=== PATIENT | female | born 1955 ===

== ENCOUNTER 2022-05-10 18:15 | Outpatient (REF) | payer MEDICARE, BC, SELFPAY ==
[2022-05-10 14:55] LABS: HCT 44.8 % (36.0-46.0); HGB 14.9 g/dL (11.2-15.7); MCH 29.4 pg (27.0-33.0); MCHC 33.3 % (32.0-36.0); MCV 88 fL (80-95); MPV 10.1 fL (8.0-11.0); Platelet Count 201 10^3/uL (130-400); RBC 5.07 10^6/uL (3.93-5.22); RDW 12.8 % (11.7-14.6); RDW-SD 41.8 fL; WBC 5.27 10^3/uL (4.4-10.8)
[2022-05-10 15:17] LABS: Anion Gap 7.3 mmol/L (3-11); BUN 17 mg/dL (7-18); CO2 27.7 mmol/L (21.0-32.0); CREATININE 0.8 mg/dL (0.55-1.02); Calcium 9.1 mg/dL (8.5-10.1); Calculated LDL 168 mg/dL (<100); Chloride 104 mmol/L (98-107); Cholesterol 256 mg/dL (<200); Estimated GFR 81.21 (mL/min/1.73m2); Glucose 104 mg/dL (74-106); HDL Cholesterol 73 mg/dL (40-60); Potassium 4.2 mmol/L (3.5-5.1); Sodium 139 mmol/L (136-145); Triglyceride 77 mg/dL (<150)
[2022-05-10 16:13] LABS: Hemoglobin A1C 5.5 % (<5.7)
== END 2022-05-10 18:16 | disposition home or self-care (01) ==
LOC: NCHCN 18:15
PROVIDERS: PCP Nurse Practitioner Family; Visit Provider Family Medicine
DX: I10 Essential (primary) hypertension (principal); Z13.89 Encounter for screening for other disorder
CPT/HCPCS: 80048; 80061; 85027; 83036

== ENCOUNTER 2023-04-24 15:02 | Outpatient (REF) | payer MEDICARE, BC, SELFPAY ==
[2023-04-24 21:36] LABS: BUN 17 mg/dL (7-18); CREATININE 0.9 mg/dL (0.55-1.02); Calcium 9.7 mg/dL (8.5-10.1); Chloride 105 mmol/L (98-107); Estimated GFR 70.07 (mL/min/1.73m2); Glucose 106 mg/dL (74-106); Potassium 4.1 mmol/L (3.5-5.1); Sodium 140 mmol/L (136-145)
== END 2023-04-24 15:03 | disposition home or self-care (01) ==
LOC: NCHCN 15:02
PROVIDERS: PCP Nurse Practitioner Family; Visit Provider Family Medicine
DX: I10 Essential (primary) hypertension (principal)
CPT/HCPCS: 80048

== ENCOUNTER 2024-05-08 15:08 | Outpatient (REF) | payer MEDICARE, BC, SELFPAY ==
--- OUTSIDE RECORDS SUMMARY | 2024-05-08 15:11 | XMS_ITS | Referral Summary ---
Author Organization [facility] Address [address] [place] [address] Care Team Providers Care Microsoft Crm Developer Name Role Phone Gail Chen MD Primary Care Provider [phone] Nemesio Petersen DPM Unavailable [phone] Allergies Active Allergy Reactions Criticality Noted Date Comments Amoxicillin 03/13/2023 Ampicillin 02/10/2021 Other reaction(s): rash Codeine 02/10/2021 Other reaction(s): nausea Medications latanoprost (XALATAN) 0.005 % ophthalmic solution INSTILL 1 DROP INTO EACH EYE EVERY EVENING 2 Active psyllium husk (METAMUCIL ORAL) as needed. Active valacyclovir HCl (VALTREX ORAL) 1,000 mg as needed. Active ACYCLOVIR ORAL as needed. Acti ve timolol (TIMOPTIC) 0.25 % ophthalmic solution 1 drop into affected eye Ophthalmic Once a day Active acyclovir (ZOVIRAX) 5 % ointment Apply topically every 3 hours. Active Active Problems No known active problems Social History Tobacco Use Types Packs/Day Years Used Date Smoking Tobacco: Never Smokeless Tobacco: Never Tobacco Cessation:Counseling Given: Not Answered Interpersonal Safety Answer Date Record ed Physically Hurt Never 12/22/2019 Verbally Threaten Not on file 12/22/2019 Comments No Sex and Gender Information Value Date Recorded Sex Assigned at Not on file Legal Sex Female 18:52 EST Gender Identity Female 03/10/2022 14:08 EDT Sexual Orientation Not on file Last Filed Vital Signs Vital Sign Reading Time Taken Comments Blood Pressure - - Pulse 78 04/27/2022 1009 EST Temperature - - Respiratory Rate - - Oxygen Saturation 97% 04/27/2022 1009 EST Inhaled Oxygen Concentration - - Weight 71.7 kg (158 lb) 03/08/2023 0848 EDT Height 165.1 cm (5' 5) 03/08/2023 0848 EDT Body Mass Index 26.29 03/08/2023 0848 EDT Plan of Treatment Not on file [place] [address] [address] MEDICARE [place] [facility] MEDICARE [place] Care Teams Microsoft Crm Developer Relationship Specialty Start Date End Date Gail Chen MD [address] [place] [id number] [facility] - General 03/10/22 Nemesio Petersen DPM [address] [place] [id number] 01/17/23
--- OUTSIDE RECORDS SUMMARY | 2024-05-08 15:11 | XMS_ITS | Encounter Summary ---
Author Organization [facility] Address [address] [place] [address] Care Team Providers Care Global Technical Writer Name Role Phone Gail Chen MD Primary Care Provider [phone] Encounter Details Date Type Department Care Team (Latest Contact Info) Description 04/27/2022 Travel Social History Tobacco Use Types Packs/Day Years Used Date Smoking Tobacco: Never Smokeless Tobacco: Never Interpersonal Safety Answer Date Record ed Physically Hurt Never 12/22/2019 Verbally Threaten Not on file 12/22/2019 Comments No Sex and Gender Information Value Date Recorded Sex Assigned at Not on file Legal Sex Female 18:52 EST Gender Identity Female 03/10/2022 14:08 EDT Sexual Orientation Not on file COVID-19 Exposure Response Date Recorded In the last 10 days, have yo u been in contact with someone who was confirmed or suspected to have Coronavirus/COVID-19? No / Unsure 04/27/2022 10:09 EST documented as of this encounter Plan of Treatment Not on file documented as of this encounter Visit Diagnoses Not on filedocumented in this encounter Care Teams Global Technical Writer Relationship Specialty Start Date End Date Gail Chen MD [address] [place] [address] PCP - General 03/10/22 documented as of this encounter
--- OUTSIDE RECORDS SUMMARY | 2024-05-08 15:11 | XMS_ITS | Encounter Summary ---
Author Organization [facility] Address [address] [place] [address] Care Team Providers Care Senior Cytotechnologist Name Role Phone Gail Chen MD Primary Care Provider [phone] Nemesio Petersen DPM Unavailable [phone] Reason for Visit * Radiology Services (Routine/Next Available) - Authorization Not Required Specialty Diagnoses / Procedures Referred By Sanjay alfredo Referred To Contact Diagnoses Right foot pain Procedures XR FOOT RIGHT 3 OR MORE VIEWS XR FOOT RIGHT 1-2 VIEWS Nemesio Petersen, DPM [address] [place] [address] Phone: tel: fax: [facility] Referral ID Status Reason Start Date Expiration Date Visits Requested Visits Authorized [id number] Authorization Not Required 01/17/2023 1 1 Encounter Details Date Type Department Care Team (Latest Contact Info) Description 01/17/2023 9:44 EDT - 01/17/2023 23:59 EDT Hospital Encounter [facility] [address] [place], [place] [id number] Right foot pain; Left foot pain Discharge Disposition: Home or Self Care Social History Tobacco Use Types Packs/Day Years Used Date Smoking Tobacco: Never Smokeless Tobacco: Never Interpersonal Safety Answer Date Record ed Physically Hurt Never 12/22/2019 Verbally Threaten Not on file 12/22/2019 Comments No Sex and Gender Information Value Date Recorded Sex Assigned at Not on file Legal Sex Female 18:52 EST Gender Identity Female 03/10/2022 14:08 EDT Sexual Orientation Not on file documented as of this encounter Medications at Time of Discharge acyclovir (ZOVIRAX) 5 % ointment Apply topically every 3 hours. ACYCLOVIR ORAL as needed. latanoprost (XALATAN) 0.005 % ophthalmic solution INSTILL 1 DROP INTO EACH EYE EVERY EVENING 03/04/2022 psyllium husk (METAMUCIL ORAL) as needed. timolol (TIMOPTIC) 0.25 % ophthalmic solution 1 drop into affected eye Ophthalmic Once a day valacyclovir HCl (VALTREX ORAL) 1,000 mg as needed. documented as of this encounter Discharge Disposition Disposition Code Departure Means Destination Home or Self Care documented in this encounter Plan of Treatment Not on file documented as of this encounter Procedures Procedure Name Priority Date/Time Associated Diagnosis Comments XR FOOT RIGHT 3 OR MORE VIEWS Routine 01/17/2023 10:34 EDT Right foot pain XR FOOT LEFT 3 OR MORE VIEWS Routine 01/17/2023 10:34 EDT Left foot pain documented in this encounter Results * XR FOOT LEFT 3 OR MORE VIEWS (01/17/2023 10:34 EDT) Anatomical Region Laterality Modality Lower Extremities Left Computed Radio graphy 01/18/2023 11:1 6 EDT Impressions 01/18/2023 11:16 EDT FINDINGS / IMPRESSION: Left foot: 3 weightbearing views of the left foot show no fracture or malalignment. There is severe osteoarthrosis in the first MTP joint with exuberant osteophyte formation particularly at the dorsal aspect of the articulation. Right foot: 3 weightbearing views of the right foot show no fracture or malalignment. There is a similar pattern of severe osteoarthrosis in the first MTP joint with osteophyte formation, though less robust than the contralateral foot. [id number] Narrative 01/18/2023 11:16 EDT EXAM/TECHNIQUE: XR FOOT LEFT 3 OR MORE VIEWS, XR FOOT RIGHT 3 OR MORE VIEWS ??01/17/2023 9:45 AM HISTORY: ?? Hallux rigidus ;M79.672:Left foot pain COMPARISON: None. Procedure Note Sylvain Bronson, DO - 01/18/2023 EXAM/TECHNIQUE: XR FOOT LEFT 3 OR MORE VIEWS, XR FOOT RIGHT 3 OR MORE VIEWS 39:45 AM HISTORY: Hallux rigidus ;M79.672:Left foot pain COMPARISON: None. IMPRESSION FINDINGS / IMPRESSION: Left foot: 3 weightbearing views of the left foot show no fracture ormalalignment. There is severe osteoarthrosis in the first MTP joint withexuberant osteophyte formation particularly at the dorsal aspect of thearticulation. Right foot: 3 weightbearing views of the right foot show no fracture ormalalignment. There is a similar pattern of severe osteoarthrosis in thefirst MTP joint with osteophyte formation, though less robust than thecontralateral foot. [id number] Nemesio Petersen DPM IMG DIAGNOSTIC IMAGING [facility]M [facility]KS Final Result * XR FOOT RIGHT 3 OR MORE VIEWS (01/17/2023 10:34 EDT) Anatomical Region Laterality Modality Lower Extremities Right Computed Radio graphy 01/18/2023 11:1 6 EDT Impressions 01/18/2023 11:16 EDT FINDINGS / IMPRESSION: Left foot: 3 weightbearing views of the left foot show no fracture or malalignment. There is severe osteoarthrosis in the first MTP joint with exuberant osteophyte formation particularly at the dorsal aspect of the articulation. Right foot: 3 weightbearing views of the right foot show no fracture or malalignment. There is a similar pattern of severe osteoarthrosis in the first MTP joint with osteophyte formation, though less robust than the contralateral foot. [id number] Narrative 01/18/2023 11:16 EDT EXAM/TECHNIQUE: XR FOOT LEFT 3 OR MORE VIEWS, XR FOOT RIGHT 3 OR MORE VIEWS ??01/17/2023 9:45 AM HISTORY: ?? Hallux rigidus ;M79.672:Left foot pain COMPARISON: None. Procedure Note Sylvain Bronson, DO - 01/18/2023 EXAM/TECHNIQUE: XR FOOT LEFT 3 OR MORE VIEWS, XR FOOT RIGHT 3 OR MORE VIEWS 39:45 AM HISTORY: Hallux rigidus ;M79.672:Left foot pain COMPARISON: None. IMPRESSION FINDINGS / IMPRESSION: Left foot: 3 weightbearing views of the left foot show no fracture ormalalignment. There is severe osteoarthrosis in the first MTP joint withexuberant osteophyte formation particularly at the dorsal aspect of thearticulation. Right foot: 3 weightbearing views of the right foot show no fracture ormalalignment. There is a similar pattern of severe osteoarthrosis in thefirst MTP joint with osteophyte formation, though less robust than thecontralateral foot. [id number] Nemesio Petersen DPM IM DIAGNOSTIC IMAGING [facility]M [facility]KS Final Result documented in this encounter Visit Diagnoses Diagnosis Right foot pain Pain in limb Left foot pain Pain in limb documented in this encounter Care Teams Senior Cytotechnologist Relationship Specialty Start Date End Date Gail Chen MD [address] [place] [address] PCP - General 03/10/22 Nemesio Petersen DPM [address] [place] [id number] 01/17/23 documented as of this encounter
--- OUTSIDE RECORDS SUMMARY | 2024-05-08 15:11 | XMS_ITS | Encounter Summary ---
Author Organization [facility] Address [address] [place] [address] Care Team Providers Care Meeting/Event Planner Name Role Phone Gail Chen MD Primary Care Provider [phone] Reason for Visit * Reason Comments New Patient Visit * Referral (Routine) - Authorization Not Required Specialty Diagnoses / Procedures [facility] Referred To Contact Diagnoses Right knee pain Zana Sanders MD Phone: tel: fax: [facility] [address] [place] [address] Phone: tel: fax: Referral ID Status Reason Start Date Expiration Date Visits Requested Visits Authorized [id number] Authorization Not Required 1 1 Encounter Details Date Type Department Care Team (Late st Contact Info) Description 04/27/2022 10:00 EST Office Visit [facility] [address], [place] [id number] Gumaro Strickland MD [address] [place] [phone] Right knee pain, unspecified chronicity (Primary Dx) Social History Tobacco Use Types Packs/Day Years [...] 10:09 EST documented as of this encounter Last Filed Vital Signs Vital Sign Reading Time Taken Comments Blood Pressure - - Pulse 78 04/27/2022 1009 EST Temperature - - Respiratory Rate - - Oxygen Saturation 97% 04/27/2022 1009 EST Inhaled Oxygen Concentration - - Weight - - Height - - Body Mass Index - - documented in this encounter Progress Notes * Gumaro Strickland MD - 04/27/2022 1000 EST The patient presents today for evaluation of right knee pain. This been present over the last several months. She initially localizes her pain to the lateral aspect of the knee, over the region of the lateral joint line and distal iliotibial band. She has had some pain and swelling over the medial knee as well as the suprapatellar pouch as well. Over the interval, her symptoms are improving with time, and physical therapy. She denies any instability. She denies any acute traumatic etiology. No infectious symptoms reported. No red flag systemic symptoms reported. A 10-point review of systems has been reviewed and all are negative unless noted above. History reviewed. No pertinent past medical history. Social History Tobacco Use ??? Smoking status: Never ??? Smokeless tobacco: Never Substance Use Topics ??? Alcohol use: Not on file History reviewed. No pertinent surgical history. Allergies Allergen Reactions ??? Ampicillin Other reaction(s): rash ??? Codeine Other reaction(s): nausea Medications Prior to Today's Visit Medication Sig ??? ACYCLOVIR ORAL as needed. ??? latanoprost (XALATAN) 0.005 % ophthalmic solution INSTILL 1 DROP INTO EACH EYE EVERY EVENING ??? psyllium husk (METAMUCIL ORAL) as needed. ??? valacyclovir HCl (VALTREX ORAL) as needed. No facility-administered medications prior to visit. OBJECTIVE: Pulse 78 SpO2 97% On physical exam, the patient is found to be an alert and cooperative female who appears to be alert and oriented x 3. She is well-developed, well-nourished and in no significant distress. Breathing is unlabored. Skin is warm pink and dry to inspection and palpation. Right knee: Overlying skin intact. No gross deformity. Near full range of motion with mild discomfort at the extremes of motion. Mild lateral joint line pain. There is some swelling over the medial aspect of the knee in the approximate course of the distal hamstring tendons. Knee is stable to stress. Distally neurovascular intact New radiographs were ordered obtained interpreted in the office today. These were independently reviewed by me. These are notable for mild degenerative changes including decreased joint space and osteophyte formation. No acute fracture or dislocation ASSESSMENT: Right knee osteoarthritis exacerbation PLAN: The patient's presentation is most consistent with an exacerbation of underlying right knee osteoarthritis. I believe that she has some degree of iliotibial band syndrome as well. Both of theseare improving with time and physical therapy. I recommend observation of her symptoms at this time.Should her symptoms and swelling not improve, we will consider advanced imaging. Regarding injections, I would also recommend observation and holding off on this at the present time. She is comfortable with this plan. I will plan to send a copy of this note to her primary care physician as well as her referring provider. All questions answered in detail. I spent a total of 30 minutes on the date of this encounter meeting with the patient and reviewing documentation/coordinating care as described in the above note. Gumaro Strickland MD 04/27/2022 documented in this encounter Plan of Treatment Not on file documented as of this encounter Procedures Procedure Name Priority Date/Time Associated Diagnosis Comments XR KNEE RIGHT 4 OR MORE VIEWS Routine 04/27/2022 10:22 EST Right knee pain, unspecified chronicity documented in this encounter Results * XR KNEE RIGHT 4 OR MORE VIEWS (04/27/2022 10:22 EST) Anatomical Region Laterality Modality Lower Extremities Right Computed Radio graphy 04/27/2022 13:0 4 EST Impressions 04/27/2022 13:04 EST Mild tricompartmental osteoarthrosis. Narrative 04/27/2022 13:04 EST XR KNEE RIGHT 4 OR MORE VIEWS ?? Signs and Symptoms/Comments: ??knee pain Comparison: None. Findings: Right Knee: Standing AP, PA flexion, lateral and sunrise views were performed. Bones: No acute fracture or malalignment. Degenerative changes: Mild tricompartmental osteoarthrosis. Soft tissues: Trace suprapatellar joint effusion. Procedure Note Mario Alberto Menendez MD - 04/27/2022 XR KNEE RIGHT 4 OR MORE VIEWS Signs and Symptoms/Comments: knee pain Comparison: None. Findings: Right Knee: Standing AP, PA flexion, lateral and sunrise views wereperformed. Bones: No acute fracture or malalignment. Degenerative changes: Mild tricompartmental osteoarthrosis. Soft tissues: Trace suprapatellar joint effusion. IMPRESSION Mild tricompartmental osteoarthrosis. Gumaro Strickland MD IMG DIAGNOSTIC IMAGING ORDERABLE S Final Result documented in this encounter Visit Diagnoses Diagnosis Right knee pain, unspecified chronicity- Primary documented in this encounter Historical Medications * This list may reflect changes made after this encounter. ACYCLOVIR ORAL as needed. valacyclovir HCl (VALTREX ORAL) 1,000 mg as needed. psyllium husk (METAMUCIL ORAL) as needed. latanoprost (XALATAN) 0.005 % ophthalmic solution INSTILL 1 DROP INTO EACH EYE EVERY EVENING 03/04/2022 added in this encounter Care Teams Meeting/Event Planner Relationship Specialty Start Date End Date Gail Chen MD [address] [facility] [place] [id number] PCP - General 03/10/22 documented as of this encounter
--- OUTSIDE RECORDS SUMMARY | 2024-05-08 15:11 | XMS_ITS | Encounter Summary ---
Author Organization [facility] Address [address] [place] [address] Care Team Providers Care Information Assoc Name Role Phone Gail Chen MD Primary Care Provider [phone] Reason for Referral * Radiology Services (Routine/Next Available) - Authorization Not Required Specialty Diagnoses / Procedures Referred By Sanjay alfredo Referred To Contact Diagnoses Inconclusive mammogram Procedures US BREAST LIMITED RIGHT Gail Chen MD [address] [place] [address] Phone: tel: fax: [facility] Referral ID Status Reason Start Date Expiration Date Visits Requested Visits Authorized [id number] Authorization Not Required 2 1 1 Reason for Visit * Radiology Services (Routine/Next Available) - Authorization Not Required Specialty Diagnoses / Procedures Referred By Sanjay alfredo Referred To Contact Diagnoses Inconclusive mammogram Procedures US BREAST LIMITED RIGHT Gail Chen MD [address] [place] [address] Phone: tel: fax: [facility] Referral ID Status Reason Start Date Expiration Date Visits Requested Visits Authorized [id number] Authorization Not Required 2 1 1 Encounter Details Date Type Department Care Team (Latest Contact Info) Description 03/16/2022 9:05 EDT - 03/16/2022 23:59 EDT Hospital Encounter [facility] Ultrasound - Main Ward [address] [place] [address] Inconclusive mammogram Discharge Disposition: Home or Self Care Social History Tobacco Use Types Packs/Day Years Used Date Smoking Tobacco: Never Assessed Interpersonal Safety Answer Date Record ed Physically Hurt Never 12/22/2019 Verbally Threaten Not on file 12/22/2019 Comments No Sex and Gender Information Value Date Recorded Sex Assigned at Not on file Legal Sex Female 18:52 EST Gender Identity Female 03/10/2022 14:08 EDT Sexual Orientation Not on file documented as of this encounter Medications at Time of Discharge latanoprost (XALATAN) 0.005 % ophthalmic solution INSTILL 1 DROP INTO EACH EYE EVERY EVENING 03/04/2022 documented as of this encounter Discharge Disposition Disposition Code Departure Means Destination Home or Self Care documented in this encounter Plan of Treatment Not on file documented as of this encounter Procedures Procedure Name Priority Date/Time Associated Diagnosis Comments US BREAST LIMITED RIGHT Routine 03/16/2022 10:26 EDT Inconclusive mammogram documented in this encounter Results * US BREAST LIMITED RIGHT (03/16/2022 10:26 EDT) Anatomical Region Laterality Modality Breast Right Ultrasound 03/16/2022 11:0 2 EDT Narrative 03/16/2022 11:02 EDT MA BREAST DIAGNOSTIC ELEONORA RIGHT, US BREAST LIMITED RIGHT ??03/16/2022 9:00 AM Signs and Symptoms/Comments: ?? Eval nodular density- Outside Cat0 Comparison: Mammogram from 02/23/22 and prior Technique: Right mammogram: Focal compression synthetic 2-D and 3-D CC and MLO views Right breast ultrasound: Diagnostic ultrasound of the medial half of the breast was performed with real-time technique. Findings: Right mammogram: There are scattered fibroglandular densities. There is a persistent focal asymmetry in the medial mid aspect of the breast. There is also a small oval mass in the upper inner aspect of the breast which is stable. Right breast ultrasound: At 3:00, 6 cm from the nipple, there is a small cyst with some adjacent small cysts or ducts. The cyst measures 3 x 2 x 2 mm and likely corresponds with the mammographic finding which was new in the medial aspect of the breast. There is a benign-appearing simple cyst at 1:00 3 cm from the nipple measuring 3 x 5 x 4 mm which likely corresponds to the second oval mass which was stable on mammography. Impression right breast: BI-RADS Category Assessment 2: Benign Findings. Recommendation: Annual screening mammography is recommended in February 2023. Overall assessment: BI-RADS Category Assessment 2: Benign Findings. The patient was told the results and recommendations of the study by the milk pickup driver. The patient will also be notified of breast imaging results via a lay letter from radiology. Portions of this document may have been prepared with speech recognition software or keyboard pharmacy data analyst techniques. Minor irregularities or keyboarding misprints may be present. us Gail Chen MD IMG US ORDERABLES Final Result documented in this encounter Visit Diagnoses Diagnosis Inconclusive mammogram documented in this encounter Care Teams Information Assoc Relationship Specialty Start Date End Date Gail Chen MD [address] [place] [address] PCP - General 03/10/22 documented as of this encounter
--- OUTSIDE RECORDS SUMMARY | 2024-05-08 15:11 | XMS_ITS | Encounter Summary ---
Author Organization [facility] Address [address] [place] [address] Care Team Providers Care Supervisor Rubber Covering Name Role Phone Gail Chen MD Primary Care Provider [phone] Encounter Details Date Type Department Care Team (Latest Contact Info) Description 08/09/2022 Travel Social History Tobacco Use Types Packs/Day [...] suspected to have Coronavirus/COVID-19? No / Unsure 08/09/2022 13:48 EDT documented as of this encounter Plan of Treatment Not on file documented as of this encounter Visit Diagnoses Not on filedocumented in this encounter Care Teams Supervisor Rubber Covering Relationship Specialty Start Date End Date Gail hCen MD [address] [place] [address] PCP - General 03/10/22 documented as of this encounter
--- OUTSIDE RECORDS SUMMARY | 2024-05-08 15:11 | XMS_ITS | Encounter Summary ---
Author Organization [facility] Address [address] [place] [address] Care Team Providers Care Dust Collector Treater Name Role Phone Gail Chen MD Primary Care Provider [phone] Reason for Visit * Reason Comments Follow-up Encounter Details Date Type Department Care Team (Late st Contact Info) Description 08/09/2022 13:45 EDT Office Visit [facility] Orthopedics & Sport Medicine [address], [address] [place], [place] [id number] Danyel Isaac MD [address] [facility] [address] [place] [address] De Quervain's disease (tenosynovitis) (Primary Dx) Social History Tobacco Use Types [...] 13:48 EDT documented as of this encounter Progress Notes * Danyel Isaac MD - 08/09/2022 1345 EDT Injection 04/29/22 Injection worked well, still currently working Injection worked 100% Orthopaedic Surgery Office Note Cheryl Toledo 1955 [phone] Subjective. Patient presents to discuss treatment options for her right de Quervain's tendinitis. She thinks she has had about 4 or 5 steroid shots 1 in March and one last summer. She notes there is been a little bit of skin discoloration which was quite severe she does travel some to visit her g meriss[place] and that may have made it worse. She wants to know if she should intervene prophylactically while things are quiet. 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 There is no problem list on file for this patient. Current Outpatient Medications Medication ??? acyclovir (ZOVIRAX) 5 % ointment ??? ACYCLOVIR ORAL ??? latanoprost (XALATAN) 0.005 % ophthalmic solution ??? psyllium husk (METAMUCIL ORAL) ??? timolol (TIMOPTIC) 0.25 % ophthalmic solution ??? valacyclovir HCl (VALTREX ORAL) No current facility-administered medications for this visit. Allergies Allergen Reactions ??? Ampicillin Other reaction(s): rash ??? Codeine Other reaction(s): nausea Objective: No data found. On physical exam, the patient is found to be a pleasant and cooperative female who appears to be alert and oriented x 3. She is well-developed, well-nourished and in no significant distress. Breathing is unlabored. Skin is warm, pink and dry to inspection and palpation. Neurovascularly intact with good capillary refill. Examination shows an area over the right radial styloid first dorsal compartment that has a slight pink hue to it and the skin may be thinned ever so slightly. She has a negative Yassine test negative hitchhiker's test negative swelling or tendinitis over that area at thistime although she notes it was quite severe prior to the injection. She has no carpal tunnel no triggering no other issues with her hands. Assessment/Plan: I reviewed treatment options at this point I am glad to offer surgery at any pointif she calls up and sees that it is going in the wrong direction and wants to intervene before getsso severe. I advised against further steroid shots given the skin changes. Danyel Isaac MD 08/09/22 14:20 documented in this encounter Plan of Treatment Not on file documented as of this encounter Visit Diagnoses Diagnosis De Quervain's disease (tenosynovitis)- Primary Radial styloid tenosynovitis documented in this encounter Historical Medications * This list may reflect changes made after this encounter. acyclovir (ZOVIRAX) 5 % ointment Apply topically every 3 hours. timolol (TIMOPTIC) 0.25 % ophthalmic solution 1 drop into affected eye Ophthalmic Once a day added in this encounter Care Teams Dust Collector Treater Relationship Specialty Start Date End Date Gail Chen MD [address] [facility] [place] [address] PCP - General 03/10/22 documented as of this encounter
--- OUTSIDE RECORDS SUMMARY | 2024-05-08 15:11 | XMS_ITS | Clinical Summary ---
Author Organization [facility] Address [address] [place] [address] Care Team Providers Care Linoleum Layer Name Role Phone Gail Chen MD Primary Care Provider [phone] Nemesio Petersen DPM Unavailable [phone] Allergies Active Allergy Reactions Criticality Noted Date [...] 14:08 EDT Sexual Orientation Not on file Obstetrics History Para Term AB IAB SAB Ectopic Multiple Livin g Live Births 2 2 2 Date Outcome GA Total Labor Labor/2nd/3rd Weight Sex Type Anes PTL Ira A1 A5 Name Clin Para Para Last Filed Vital Signs Vital Sign Reading Time Taken Comments Blood Pressure - - Pulse 78 04/27/2022 1009 EST Temperature - - Respiratory Rate - - Oxygen Saturation 97% 04/27/2022 1009 EST Inhaled Oxygen Concentration - - Weight 71.7 kg (158 lb) 03/08/2023 0848 EDT Height 165.1 cm (5' 5) 03/08/2023 0848 EDT Body Mass Index 26.29 03/08/2023 0848 EDT Plan of Treatment Health Maintenance Due Date Last Done Comments Hepatitis C Screen 1955 Fall Risk Screening 2021 COVID-19 Vaccine (2023- season) 2024 RSV Immunization ( o r 60+ Years) (1 - 1-dose 75+ series) 2031 Insurance [facility] MEDIC[facility] ACO [place] [facility] Address: [facility] [address] [place] [address] MEDICARE ACO [place] Care Teams Linoleum Layer Relationship Specialty Start Date End Date Gail Chen MD [address] [place] [address] PCP - General 03/10/22 Nemesio Petersen DPM [address] [place] [id number] 01/17/23
--- OUTSIDE RECORDS SUMMARY | 2024-05-08 15:11 | XMS_ITS ---
Author Organization Unknown Address [address] [place] [phone] Phone Care Team Providers Care Hand Glass Cutter Name Role Phone KIERRA WATSON Attending Unavailable RASHAWN PARADA DO Secondary Unavailable Results MM DIGITAL CALLBACK W ELEONORA Desiree HANNA RT - Completed: 02/11/2021 16:29 LOINC: Digital mammograms were inte rpreted according to the usual protocol including computer analysis with [employer] system including tomosynthesis. ADDITIONAL VIEWS OF THE RIGHT BREAST AND RIGHT BREAST ULTRASOUND Comparison with prior examinations. There are again seen 2 well-circumscribed nodules in the right breast, one seen on the MLO additional views, one above the nipple and one just posterior to the nipple. They are well circumscribed without associated microcalcifications. A right breast ultrasound was performed. All 4 quadrants of the right breast were evaluated sonographically. Several small simple cysts are seen within the right breast. The largest is at the 7 o'clock position 3 cm from the nipple and measures 0.6 cm. There is a 0.4 cm cyst at the 10 o'clock position of the right breast 5 cm from the nipple. There is a 0.3 cm simple at the 1 o'clock position of the right breast 4 cm from the nipple. No suspicious solid or cystic masses are seen in the right breast on the sonogram. IMPRESSION: No evidence for malignancy. A 6 month follow-up right mammogram is recommended for re-evaluation. BI-RADS Assessment: Category 3. Probably Benign Findings - Short interval follow-up suggested. The findings were discussed with the patient on the date of the examination. BREAST DENSITY: b. There are scattered areas of fibroglandular density. TECHNOLOGIST: RT Fernando (R) (CT) Dictated by: IJEOMA CURRIE M.D. RADIOLOGIST Transcribed by: [facility] 02/12/21/11:40 D 02/11/2021 11:18:56 [id number] Electronically Reviewed and Signed By: KAMLA CURRIE M.D. RADIOLOGIST 02/15/21 08:54 Copy for: KIERRA WATSON via link Copy for: RASHAWN PARADA DO via fax [employer] BREAST Appurify RT - Compl eted: 02/11/2021 17:23 LOINC: Digital mammograms were interpreted according to the usual protocol including computer analysis with [employer] system including tomosynthesis. ADDITIONAL VIEWS OF THE RIGHT BREAST AND RIGHT BREAST ULTRASOUND Comparison with prior examinations. There are again seen 2 well-circumscribed nodules in the right breast, one seen on the MLO additional views, one above the nipple and one just posterior to the nipple. They are well circumscribed without associated microcalcifications. A right breast ultrasound was performed. All 4 quadrants of the right breast were evaluated sonographically. Several small simple cysts are seen within the right breast. The largest is at the 7 o'clock position 3 cm from the nipple and measures 0.6 cm. There is a 0.4 cm cyst at the 10 o'clock position of the right breast 5 cm from the nipple. There is a 0.3 cm simple at the 1 o'clock position of the right breast 4 cm from the nipple. No suspicious solid or cystic masses are seen in the right breast on the sonogram. IMPRESSION: No evidence for malignancy. A 6 month follow-up right mammogram is recommended for re-evaluation. BI-RADS Assessment: Category 3. Probably Benign Findings - Short interval follow-up suggested. The findings were discussed with the patient on the date of the examination. BREAST DENSITY: b. There are scattered areas of fibroglandular density. TECHNOLOGIST: Aminah Alvarado RT (R) (CT) Dictated by: IJEOMA CURRIE M.D. RADIOLOGIST Transcribed by: [facility] 02/12/2111:40 D 02/11/2021 11:18:56 [id number] Electronically Reviewed and Signed By: KAMLA CURRIE M.D. RADIOLOGIST 02/15/21 08:54 Copy for: KIERRA WATSON via link Copy for: RASHAWN PARADA DO via fax Social History Type Status Start Date End Date Code Code Syst em Smoking History Never smoker (Never Smoked) [id number] SNOMED CT Sex Female Hospital Discharge Instructions Should you have any questions prior to discharge, please contact a member of your healthcare team. If you have left the hospital and have any questions, please contact your primary care physician. Reason For Referral No Data Found Plan of Treatment MM SCREEN BILAT 02/23/2022 MM DIAG RT UNILAT 10/08/2021 US BREAST UNI RT 10/08/2021 MM DIAG RT UNILAT 10/08/2021 US BREAST UNI RT 10/08/2021 Encounters Encounter Diagnosis Start Date Code Code Sys tem Other abnormal and inconclus ajay findings on diagnostic imaging of breast 02/11/2021 SNOMED-CT Personal Care Team Section Performer Name Performer Role Active Date Inactive Da te
--- OUTSIDE RECORDS SUMMARY | 2024-05-08 15:11 | XMS_ITS | Encounter Summary ---
Author Organization Health system Address [address] [place] [address] Care Team Providers Care Tester Wafer Substrate Name Role Phone Gail Chen MD Primary Care Provider [phone] Encounter Details Date Type Department Care Team (Latest Contact Info) Description 04/29/2022 Travel Social History Tobacco Use Types Packs/Day [...] suspected to have Coronavirus/COVID-19? No / Unsure 04/29/2022 15:22 EST documented as of this encounter Plan of Treatment Not on file documented as of this encounter Visit Diagnoses Not on filedocumented in this encounter Care Teams Tester Wafer Substrate Relationship Specialty Start Date End Date Gail Chen MD [address] [place] [address] PCP - General 03/10/22 documented as of this encounter
--- OUTSIDE RECORDS SUMMARY | 2024-05-08 15:11 | XMS_ITS ---
Author Organization Unknown Address [address] [place] [phone] Phone Care Team Providers Care Prop Making Supervisor Name Role Phone KIERRA WATSON Attending Unavailable RASHAWN PARADA DO Secondary Unavailable Results MM DIGITAL SCR W ELEONORA BILATE RAL - Completed: 01/26/2021 10:20 LOINC: Digital mammograms were inte rpreted according to the usual protocol including computer analysis with [employer] system including tomosynthesis. Both CC and MLO views of both breasts were performed and compared to prior mammograms dating back to 2011, the most recent being January 2019. There are no new left breast findings. However, in the right breast on 3D MLO imaging, there are 2 well defined noncalcified nodules, both measuring 3 mm and located 3.5 and 4.3 cm in from the nipple. These were not previously evident. Spot compression views and ultrasound are recommended. IMPRESSION: 1. No radiographic evidence of malignancy in the left breast. 2. Two right breast nodules as described above. Spot compression views and ultrasound recommended. BI-RADS Assessment: Category 0 - Incomplete: Need additional imaging evaluation BREAST DENSITY: b.?? There are scattered areas of fibroglandular density. Dictated by: SHLOMO GARCIA M.D. RADIOLOGIST Transcribed by: BOOGIE 01/27/21/14:39 D Tuesday, January 26, 2021 5:49:25 PM [id number] Electronically Reviewed and Signed By: BILLY GARCIA M.D. RADIOLOGIST 01/27/21 22:05 TECHNOLOGIST: Vida Schuler RT (R)(M)(CT) Copy for: KIERRA WATSON via link Social History Type Status Start Date End Date Code Code Syst em Smoking History Never smoker (Never Smoked) [id number] SNOMED CT Sex Female Hospital Discharge Instructions [...] Diagnosis Start Date Code Code Sys tem Encounter for screening mamm ogram for malignant neoplasm of breast 01/26/2021 SNOMED-CT Personal Care Team Section Performer Name Performer Role Active Date Inactive Da te
--- OUTSIDE RECORDS SUMMARY | 2024-05-08 15:11 | XMS_ITS | Encounter Summary ---
Author Organization [facility] Address [address] [place] [address] Care Team Providers Care Allergist Immunologist Name Role Phone Gail Chen MD Primary Care Provider Reason for Visit * Reason Comments New Patient Visit Encounter Details Date Type Department Care Team (Late st Contact Info) Description 04/29/2022 15:30 EST Office Visit [facility] Orthopedics & Sport Medicine [address] [place] [address] Rylie Combs PA-C [address] [place] [id number] Right wrist pain (Primary Dx) Social History Tobacco Use Types [...] 15:22 EST documented as of this encounter Progress Notes * Rylie Combs PA-C - 04/29/2022 1530 EST Cheryl presents today for evaluation of her right wrist. There are no referrals, notes, or imaging. Patient saw [facility] on 04/27 for the right knee. Per appointment note, possible De Quervain's. Has had injections multiple areas with Hortensia Palencia, including De Quervain's injection Has done PT for the knee, working on wrist as well November 2021 last injection, worked for 2-2.5 months Has had two injections in that spot Slight numbness in area Has tried bracing Uses ice Has used topical Pain gets up to a 8-9/10 PROBLEM: Right wrist pain SUBJECTIVE: Cheryl Toledo is a 67 y.o. right hand dominant female who is here today for a new issue, including her right wrist pain. She has had several injections with Dr. Nuñez, 1 about a year and a half ago, and 1 over the summer for de Quervain's. They worked well, but were temporary. She has a 1-1/2-year-old grandchild and the pain is been getting worse with lifting, helping with caring for her. Has tried bracing, has tried topicals, ice, anti- inflammatories, as well as therapy without relief in the long-term. She wants to have surgery to release it but not until the spring. She wants another injection today. The past medical, family and social history have been reviewed in the patient chart. I spent time preparing advance of the visit today, which included obtaining and reviewing prior history and notes from the primary care provider and/or referring providers, as well as reviewing any relevant prior imaging and tests, which I also independently interpreted. OBJECTIVE: There were no vitals taken for this visit. On physical exam, the patient is found to be a pleasant and cooperative female who appears to be alert and oriented x 3. She is well-developed, well-nourished and in no significant distress. Breathing is unlabored. Skin is warm, pink and dry to inspection and palpation. Neurovascularly intact with good capillary refill. Upon inspection, there are no obvious areas of ecchymosis, joint deformity oratrophy. She does have some swelling over the radial wrist, consistent with de Quervain's tenosynovitis, as well as pain over the first dorsal compartment. Positive Yassine's, pain with resisted thumb extension. No swelling or pain with the intersection syndrome, range of motion of the wrist isotherwise full and equal to the contralateral side, and nontender. No tenderness palpation over theradiocarpal wrist. DIAGNOSTICS: Radiographs of the wrist were ordered and taken in the office today. These were independently reviewed by me. No acute osseous abnormalities. Degenerative change, radiocarpal wrist, mildmild degenerative change CMC joint. ASSESSMENT: De Quervain's tenosynovitis PLAN: After reviewing the prior separately obtained patient history, imaging and tests, and performing my examination and evaluation, I counseled educate the patient today about her issue. I am very hesitant to do another injection today I described the risks to her in detail. She would like to proceed. I did encourage her to seek a surgical consultation and she will do that with Dr. Isaac in the spring. It is unlikely that this injection will provide permanent relief. I discussed the risks including atrophy of the fat tissue subcutaneously, injury to the tendon including rupture, as well as discoloration, pain, infection etc. etc. She would like to still continue. All questions were answered, she was pleased with the plan. This note was prepared using voice recognition software and the EMR. There may be inadvertent errors and omissions. ESE Muir 04/29/2022 * Rylie Combs PA-C - 04/29/2022 1530 ESTAssociated Order(s): Hand/Upper Extremity Injection/Arthrocentesis Post-Procedure Diagnose(s): Right wrist pain Procedure: Hand/Upper Extremity Injection/Arthrocentesis for de Quervain's tenosynovitis on 04/29/2022 15:30 Indications: therapeutic Medications: 40 mg methylPREDNISolone ACETATE 40 mg/mL; 0.5 mL lidocaine (PF) 10 mg/mL (1 %) Outcome: tolerated well, no immediate complications Procedure, treatment alternatives, risks and benefits explained, specific risks discussed. Consent was given by the patient. Immediately prior to procedure a time out was called to verify the correctpatient, procedure, equipment, it support manager and site/side marked as required. Patient was prepped and draped in the usual sterile fashion. documented in this encounter Plan of Treatment Not on file documented as of this encounter Procedures Procedure Name Priority Date/Time Associated Diagnosis Comments XR WRIST RIGHT 3 OR MORE VIEWS Routine 04/29/2022 15:40 EST Right wrist pain HAND/UPPER EXTREMITY INJECTION/ARTHROCEN TESIS Routine 04/29/2022 15:30 EST Right wrist pain documented in this encounter Results * XR WRIST RIGHT 3 OR MORE VIEWS (04/29/2022 15:40 EST) Anatomical Region Laterality Modality Upper Extremities Right Computed Radio graphy 04/29/2022 15:4 3 EST Impressions 04/29/2022 15:43 EST 1. No acute osseous injury detected. 2. Ulnar plus alignment. No adjacent sclerosis or lucency in the lunate is seen. 3. 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 Narrative 04/29/2022 15:43 EST INDICATION: right wrist pain TECHNIQUE: 3 views right wrist. COMPARISON: None. FINDINGS: There is an ulnar plus alignment. The adjacent lunate appears unremarkable. Early joint space narrowing is seen at the triscaphe joint and base of thumb. There is also early joint space narrowing throughout the visualized portions of the MCP joints and interphalangeal joints. Procedure Note Lincoln Torres MD - 04/29/2022 INDICATION: right wrist pain TECHNIQUE: 3 views right wrist. COMPARISON: None. FINDINGS: There is an ulnar plus alignment. The adjacent lunate appearsunremarkable. Early joint space narrowing is seen at the triscaphe jointand base of thumb. There is also early joint space narrowing throughoutthe visualized portions of the MCP joints and interphalangeal joints. IMPRESSION 1. No acute osseous injury detected. 2. Ulnar plus alignment. No adjacent sclerosis or lucency in the lunate isseen. 3. 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 Rylie Combs PA-C IMG DIAGNOSTIC IMAGI NG ORDERABLES Final Result * CT INJECTION 1 TENDON SHEATH/LIGAMENT APONEUROSIS (04/29/2022 15:30 EST) Narrative [facility]INT [facility] - 04/29/2022 15:30 EST Rylie Combs PA-C ? 04/29/2022 16:18 Hand/Upper Extremity Injection/Arthrocentesis for de Quervain's tenosynovitis on 04/29/2022 15:30 Indications: therapeutic Medications: 40 mg methylPREDNISolone ACETATE 40 mg/mL; 0.5 mL lidocaine (PF) 10 mg/mL (1 %) Outcome: tolerated well, no immediate complications Procedure, treatment alternatives, risks and benefits explained, specific risks discussed. Consent was given by the patient. Immediately prior to procedure a time out was called to verify the correct patient, procedure, equipment, it support manager and site/side marked as required. Patient was prepped and draped in the usual sterile fashion. Rylie Combs PA-C PROCEDURE/MINOR SURG ICAL ORDERABLES Final Result [facility] POINT OF CARE documented in this encounter Visit Diagnoses Diagnosis Right wrist pain- Primary Pain in joint, forearm documented in this encounter Administered Medications Inactive Administered Medications - up to 3 most recent administrations Medication Order MAR Action Action Date Dose Rate Site lidocaine (PF) 10 mg/mL (1 %) injection 0.5 mL 0.5 mL, other, Once PRN Procedure, 1 dose, Starting on Mon04/29/22 at 1530, Until Mon04/29/22 at 1530, RoutineIndications:Right wrist pain Given 04/29/2022 15:30 EST 0.5 mL methylPREDNISolone ACETATE (DEPO-MEDROL) injection 40 mg 40 mg, intra-articular, Once PRN Procedure, 1 dose, Starting on Mon04/29/22 at 1530, Until Mon04/29/22 at 1530, RoutineIndications:Right wrist pain Given 04/29/2022 15:30 EST 40 mg documented in this encounter Care Teams Allergist Immunologist Relationship Specialty Start Date End Date Gail Chen MD [address] [place] [address] [place] [id number] PCP - General 03/10/22 documented as of this encounter
--- OUTSIDE RECORDS SUMMARY | 2024-05-08 15:11 | XMS_ITS | Encounter Summary ---
Author Organization [facility] Address [address] [place] [address] Care Team Providers Care Dobby Looms Pegger Name Role Phone Gail Chen MD Primary Care Provider [phone] Nemesio Petersen DPM Unavailable [phone] Reason for Referral * Radiology Services (Routine/Next Available) - Authorization Not Required Specialty Diagnoses / Procedures Referred By Contac t Referred To Contact Diagnoses Encounter for screening mammogram for malignant neoplasm of breast Procedures MA BREAST SCREENING ELEONORA BILATERAL Gail Chen MD [address] [place] [address] Phone: tel: fax: [facility] Referral ID Status Reason Start Date Expiration Date Visits Requested Visits Authorized [id number] Authorization Not Required 3 1 1 Reason for Visit * Radiology Services (Routine/Next Available) - Authorization Not Required Specialty Diagnoses / Procedures Referred By Sanjay alfredo Referred To Contact Diagnoses Encounter for screening mammogram for malignant neoplasm of breast Procedures MA BREAST SCREENING ELEONORA BILATERAL Gail Chen MD [address] [place] [address] Phone: tel: fax: [facility] [place] Referral ID Status Reason Start Date Expiration Date Visits Requested Visits Authorized [id number] Authorization Not Required 3 1 1 Encounter Details Date Type Department Care Team (Latest Contact Info) Description 03/08/2023 8:20 EDT - 03/08/2023 23:59 EDT Hospital Encounter [facility] - [facility] [place] Mammography [address] [place] [address] Encounter for screening mammogram for malignant neoplasm of breast Discharge Disposition: Home or Self Care Social [...] on file documented as of this encounter Last Filed Vital Signs Vital Sign Reading Time Taken Comments Blood Pressure - - Pulse - - Temperature - - Respiratory Rate - - Oxygen Saturation - - Inhaled Oxygen Concentration - - Weight 71.7 kg (158 lb) 03/08/2023 0848 EDT Height 165.1 cm (5' 5) 03/08/2023 0848 EDT Body Mass Index 26.29 03/08/2023 0848 EDT documented in this encounter Medications at Time of Discharge [...] Procedure Name Priority Date/Time Associated Diagnosis Comments MA BREAST SCREENING ELEONORA BILATERAL Routine 03/08/2023 9:07 EDT Encounter for screening mammogram for malignant neoplasm of breast documented in this encounter Results * MA BREAST SCREENING ELEONORA BILATERAL (03/08/2023 9:07 EDT) Anatomical Region Laterality Modality Breast Bilateral Mammography 03/12/2023 9:01 EDT Impressions 03/12/2023 9:01 EDT Negative, no evidence of malignancy. RECOMMENDATION: Routine screening mammography is recommended. OVERALL ASSESSMENT: BI-RADS 1: Negative These results will be communicated to your patient via a lay letter from Radiology. If any additional imaging is needed we will contact your patient directly. [id number] Narrative 03/12/2023 9:01 EDT MA BREAST SCREENING ELEONORA BILATERAL ??03/08/2023 8:30 AM History: Encounter for screening mammogram for malignant neoplasm of breast;Z12.31:Encounter for screening mammogram for malignant neoplasm of breast Comparison: ??Comparison has been made to previous images . ? Technique: Routine 3D tomosynthesis with synthesized 2D views with CAD Breast Composition: There are scattered areas of fibroglandular density. Bilateral Breast Findings: ??No significant masses, calcifications or other abnormalities are seen. Procedure Note Jatinder Farley MD - 03/12/2023 MA BREAST SCREENING ELEONORA BILATERAL 03/08/2023 8:30 AM History: Encounter for screening mammogram for malignant neoplasm ofbreast;Z12.31:Encounter for screening mammogram for malignant neoplasm ofbreast Comparison: Comparison has been made to previous images . Technique: Routine 3D tomosynthesis with synthesized 2D views with CAD Breast Composition: There are scattered areas of fibroglandular density. Bilateral Breast Findings: No significant masses, calcifications or otherabnormalities are seen. IMPRESSION Negative, no evidence of malignancy. RECOMMENDATION: Routine screening mammography is recommended. OVERALL ASSESSMENT: BI-RADS 1: Negative These results will be communicated to your patient via a lay letter fromRadiology. If any additional imaging is needed we will contact yourpatient directly. [id number] Gail Chen MD IMG MAMMOGRAPHY ORDERABLES Fin al Result documented in this encounter Visit Diagnoses Diagnosis Encounter for screening mammogram for malignant neoplasm of breast Other screening mammogram documented in this encounter Care Teams Dobby Looms Pegger Relationship Specialty Start Date End Date Gail Chen MD [address] [place] [address] PCP - General 03/10/22 Nemesio Petersen DPM [address] [place] [address] 01/17/23 documented as of this encounter
--- OUTSIDE RECORDS SUMMARY | 2024-05-08 15:11 | XMS_ITS | Encounter Summary ---
Author Organization [facility] Address [address] [place] [address] Care Team Providers Care Chief Of Field Operations Name Role Phone Gail Chen MD Primary Care Provider [phone] Reason for Referral * Radiology Services (Routine/Next Available) - New Request Specialty Diagnoses / Procedures Referred By Sanjay alfredo Referred To Contact Diagnoses Inconclusive mammogram Procedures MA BREAST DIAGNOSTIC ELEONORA Gail Whitten MD [address] [place] [address] Phone: tel: fax: [facility] Referral ID Status Reason Start Date Expiration Date V isits Requested Visits Authorized [id number] New Request 02/28/2022 1 1 Reason for Visit * Radiology Services (Routine/Next Available) - New Request Specialty Diagnoses / Procedures Referred By Sanjay alfredo Referred To Contact Diagnoses Inconclusive mammogram Procedures MA BREAST DIAGNOSTIC ELEONORA Gail Whitten MD [address] [place] [address] Phone: tel: fax: [facility] Referral ID Status Reason Start Date Expiration Date V isits Requested Visits Authorized [id number] New Request 02/28/2022 1 1 Encounter Details Date Type Department Care Team (Latest Contact Info) Description 03/16/2022 9:00 EDT - 03/16/2022 9:04 EDT Hospital Encounter [facility] Breast Imaging Mammography - [address] [address] Inconclusive mammogram Discharge Disposition: Home or Self [...] Priority Date/Time Associated Diagnosis Comments MA BREAST DIAGNOSTIC ELEONORA RIGHT Routine 03/16/2022 9:24 EDT Inconclusive mammogram documented in this encounter Results * MA BREAST DIAGNOSTIC ELEONORA RIGHT (03/16/2022 9:24 EDT) Anatomical Region Laterality Modality Breast Right Mammography 03/16/2022 11:0 2 EDT Narrative 03/16/2022 11:02 [...] and recommendations of the study by the pulp grinder feeder. The patient will also be notified of breast imaging results via a lay letter from radiology. Portions of this document may have been prepared with speech recognition software or keyboard data architect manager techniques. Minor irregularities or keyboarding misprints may be present. Gail Chen MD IMG MAMMOGRAPHY ORDERABLES Fin al Result documented in this encounter Visit Diagnoses Diagnosis Inconclusive mammogram documented in this encounter Care Teams Chief Of Field Operations Relationship Specialty Start Date End Date Gail Chen MD [address] [place] [address] PCP - General 03/10/22 documented as of this encounter
--- OUTSIDE RECORDS SUMMARY | 2024-05-08 15:11 | XMS_ITS | Encounter Summary ---
Author Organization [facility] Address [address] [place] [address] Care Team Providers Care Commercial Manager Name Role Phone Gali Chen MD Primary Care Provider [phone] Nemesio Petersen DPM Unavailable [phone] Reason for Visit * Reason Comments Follow-up Encounter Details Date Type Department Care Team (Late st Contact Info) Description 03/13/2023 16:00 EDT Procedure visit [facility] [address] [place], [place] [id number] Rylie Combs PA-C [address] [place] [phone] De Quervain's disease (tenosynovitis) (Primary Dx) Social [...] on file documented as of this encounter Progress Notes * Rylie Combs PA-C - 03/13/2023 1600 EDT Previous injections caused skin discoloration Last steroid injection 04/29/22 I am very hesitant to do another injection today I described the risks to her in detail. She wouldlike to proceed. I did encourage her to seek a surgical consultation and she will do that with Dr. Isaac in the spring. LV 08/09/22 CB - Surgical discussion I reviewed treatment options at this point I am glad to offer surgery at any point if she calls upand sees that it is going in the wrong direction and wants to intervene before gets so severe. I advised against further steroid shots given the skin changes. Today: Reevaluation Started to flare up again about 2 months ago PROBLEM: Right wrist pain SUBJECTIVE: Cheryl Toledo is a 67 y.o. right hand dominant female who is here today for a new issue, including her right wrist pain. She has had several injections with Dr. Nuñez, 1 about a 2.5 years ago,, and 1 1.5 years ago for de Quervain's. They worked well, but were temporary. I did an injection for her, on 04/29/2022. These injections worked well but are temporary. She has tried bracing, has tried topicals, ice, anti-inflammatories, as well as therapy without relief in [...] No tenderness palpation over theradiocarpal wrist. DIAGNOSTICS: Prior radiographs from last year independently reviewed. These were independently reviewed by me. No acute osseous abnormalities. Degenerative change, radiocarpal wrist, mild mild degenerative change CMC joint. ASSESSMENT: De Quervain's [...] do that with Dr. Isaac in the spring if it comes back. It is unlikely that this injection will provide permanent relief. I discussed the risks including atrophy of the fat tissue subcutaneously, injury to the tendon including rupture, as well as discoloration, pain, infection etc. I did also discuss poor surgical outcome. She would like to still continue. All questions were answered, she was pleased with the plan. This note was prepared using voice recognition software and the EMR. There may be inadvertent errors and omissions. ESE Muir 03/13/2023 * Rylie Combs PA-C - 03/13/2023 1600 EDTAssociated Order(s): Hand/Upper Extremity Injection/Arthrocentesis Post-Procedure Diagnose(s): De Quervain's disease (tenosynovitis) Procedure: Hand/Upper Extremity Injection/Arthrocentesis for de Quervain's tenosynovitis on 03/13/2023 16:00 Indications: therapeutic Medications: 40 mg methylPREDNISolone ACETATE 40 mg/mL; 0.5 mL lidocaine (PF) 10 mg/mL (1 %) Outcome: tolerated well, no immediate complications We had a very long discussion about the risks and benefits of repeated injections. She is quite insistent upon repeating the injection. I discussed the possibility for tendon rupture, skin discoloration, fat atrophy, poor surgical outcomes, infection, pain, bleeding, bruising. Procedure, treatment alternatives, risks and benefits explained, specific risks discussed. Consent was given by the patient. Immediately prior to procedure a time out was called to verify the correctpatient, procedure, equipment, shipping support clerk and site/side marked as required. Patient was prepped and draped in the usual sterile fashion. documented in this encounter Plan of Treatment Not on file documented as of this encounter Procedures Procedure Name Priority Date/Time Associated Diagnosis Comments HAND/UPPER EXTREMITY INJECTION/ARTHROCEN TESIS Routine 03/13/2023 16:00 EDT De Quervain's disease (tenosynovitis) documented in this encounter Results * [place] INJECTION 1 TENDON SHEATH/LIGAMENT APONEUROSIS (03/13/2023 16:00 EDT) Narrative [facility] - 03/13/2023 16:00 EDT Rylie Combs PA-C ? 03/13/2023 16:48 Hand/Upper Extremity Injection/Arthrocentesis for de Quervain's tenosynovitis on 03/13/2023 16:00 Indications: therapeutic Medications: 40 mg methylPREDNISolone ACETATE 40 mg/mL; 0.5 mL lidocaine (PF) 10 mg/mL (1 %) Outcome: tolerated well, no immediate complications We had a very long discussion about the risks and benefits of repeated injections. ??She is quite insistent upon repeating the injection. ??I discussed the possibility for tendon rupture, skin discoloration, fat atrophy, poor surgical outcomes, infection, pain, bleeding, bruising. Procedure, treatment alternatives, risks and benefits explained, specific risks discussed. Consent was given by the patient. Immediately prior to procedure a time out was called to verify the correct patient, procedure, equipment, shipping support clerk and site/side marked as required. Patient was prepped and draped in the usual sterile fashion. Rylie Combs PA-C PROCEDURE/MINOR SURG ICAL ORDERABLES Final Result [facility] documented in this encounter Visit Diagnoses Diagnosis De Quervain's disease (tenosynovitis)- Primary Radial styloid tenosynovitis documented in this encounter Administered Medications Inactive Administered Medications - up to 3 most recent administrations Medication Order MAR Action Action Date Dose Rate Site lidocaine (PF) 10 mg/mL (1 %) injection 0.5 mL 0.5 mL, other, Once PRN Procedure, 1 dose, Starting on Mon03/13/23 at 1600, Until Mon03/13/23 at 1600, RoutineIndications:De Quervain's disease (tenosynovitis) Given 03/13/2023 16:00 EDT 0.5 mL methylPREDNISolone ACETATE (DEPO-MEDROL) injection 40 mg 40 mg, intra-articular, Once PRN Procedure, 1 dose, Starting on Mon03/13/23 at 1600, Until Mon03/13/23 at 1600, RoutineIndications:De Quervain's disease (tenosynovitis) Given 03/13/2023 16:00 EDT 40 mg documented in this encounter Care Teams Commercial Manager Relationship Specialty Start Date End Date Gail Chen MD [address] [place] [id number] PCP - General 03/10/22 Nemesio Petersen DPM [address] [place] [phone] 01/17/23 documented as of this encounter
--- OUTSIDE RECORDS SUMMARY | 2024-05-08 15:12 | XMS_ITS | Encounter Summary ---
Author Organization [facility] Address [address] [place] [address] Care Team Providers Care Packaging Engineer Name Role Phone Unknown, Provider Primary Care Provider Gail Franco MD Primary Care Provider [phone] Nemesio Petersen DPM Unavailable [phone] Encounter Details Date Type Department Care Team (Late st Contact Info) Description 02/11/2021 Lab Requisition [facility] Pathology & Laboratory Medicine - [facility] [address] [place] [address] Kim Waite, DO [address] [facility] [address] [place] [address] Polyp of cervix uteri Social History Tobacco Use Types Packs/Day Years Used Date Smoking Tobacco: Never Assessed Interpersonal Safety Answer Date Record ed Physically Hurt Never 12/22/2019 Verbally Threaten Not on file 12/22/2019 Comments Unknown Sex and Gender Information Value Date Recorded Sex Assigned at Not on file Legal Sex Female 18:52 EST Gender Identity Female 03/10/2022 14:08 EDT Sexual Orientation Not on file documented as of this encounter Plan of Treatment Not on file documented as of this encounter Procedures Procedure Name Priority Date/Time Associated Diagnosis Comments SURGICAL PATHOLOGY Today 02/11/2021 11 :26 EDT Polyp of cervix uteri [ICD-10-CM] documented in this encounter Results * SURGICAL PATHOLOGY (02/11/2021 11:26 EDT) Note to Patient The following pathology results have been interpreted by your pathologist and may be available to you before your health provider has had the opportunity to review them. Please allow time for your provider to receive these results and explore management options, if applicable. 02/15/2021 15:12 [facility] Final Diagnosis A. CERVIX, POLYP, BIOPSY: - Polypoid endocervical mucosa with dense stroma. See comment. 02/15/2021 15:12 [facility] Diagnosis Comment The biopsy is composed of dense stromal tissue covered by endocervical epithelium and a single linear area of squamous epithelium. The findings may represent an endocervical polyp; however, they do not contain all of the typical diagnostic features of an endocervical polyp. 02/15/2021 15:12 [facility] Attestation There was significant resident/fellow involvement in the diagnostic evaluation of this case. By the signature below, the attending physician certifies that they have personally conducted a gross and/or microscopic examination of the described specimens and rendered or confirmed the above diagnosis. 02/15/2021 15:12 [facility] at 1512 Clinical History Cervical polyp; clinical diagnosis code: N84.1 02/15/2021 15:12 [facility] Gross Description A. Received in formalin labelled with proper patient identification (initials G, S) and not otherwise specified are two pale davies-white to brown irregular soft tissues (0.4 x 0.3 x 0.1 cm and 0.4 x 0.1 x 0.1 cm). Entirely submitted in A1. Rigo Jacob 02/11/2021 12:15 02/15/2021 15:12 [facility] Resident/Michael w: Emma Ferro MD 02/15/2021 15:12 [facility] Performing Lab [facility] 02/15/2021 15:12 [facility] Scanned Images 02/15/2021 15:12 [facility] Tissue ENTIRE WALL OF CERVIX / Unknown 02/11/2021 11:26 EDT 02/11/2021 11:42 EDT Kim Waite DO PATHOLOGY ORDERA BLES Final Result [facility] [address] [place] [address] documented in this encounter Visit Diagnoses Diagnosis Polyp of cervix uteri Mucous polyp of cervix documented in this encounter Care Teams Packaging Engineer Relationship Specialty Start Date End Date Unknown, Provider, PCP - General 08/18/10 03/09/22 Gail Chen MD [address] [place] [phone] PCP - General 03/10/22 Nemesio Petersen DPM [address] [place] [phone] 01/17/23 documented as of this encounter
--- OUTSIDE RECORDS SUMMARY | 2024-05-08 15:12 | XMS_ITS | Encounter Summary ---
Author Organization [facility] Address [address] [place] [address] Care Team Providers Care Produce Specialist Name Role Phone Unknown, Provider MD Primary Care Provider Unava ilable Reason for Visit * (Routine/Next Available) - Receiving Office to Obtain Authorization Specialty Diagnoses / Procedures Referred By Contac t Referred To Contact Procedures MA BREAST OUTSIDE IMAGES Unknown, Provider, MD Referral ID Status Reason Start Date Expiration Date Visits Requested Visits Authorized [id number] Receiving Office to Obtain Authorization 02/27/2022 1 1 Encounter Details Date Type Department Care Team (Latest Contact Info) Description 02/15/2022 - 02/15/2022 23:59 EDT Hospital Encounter [facility] Secondary Reads [place] Discharge Disposition: Home or Self Care Social [...] on file documented as of this encounter Discharge Disposition Disposition Code Departure Means Destination Home or Self Care documented in this encounter Plan of Treatment Not on file documented as of this encounter Procedures Procedure Name Priority Date/Time Associated Diagnosis Comments MA OUTSIDE IMAGES BREAST OTHER Routine 02/15/2019 8:14 EDT documented in this encounter Results * MA BREAST OUTSIDE IMAGES (02/15/2019 8:14 EDT) Narrative 02/27/2022 8:14 EDT This is a non-reportable exam. us Provider Unknown MD TORRES OTHER IMAGING ORDERABLES Final Result documented in this encounter Visit Diagnoses Not on filedocumented in this encounter Care Teams Produce Specialist Relationship Specialty Start Date End Date Unknown, Provider, PCP - General 08/18/10 03/09/22 documented as of this encounter
--- OUTSIDE RECORDS SUMMARY | 2024-05-08 15:12 | XMS_ITS | Encounter Summary ---
Author Organization [facility] Address [address] [place] [address] Care Team Providers Care Disciplinary Hearing Officer Name Role Phone Unknown, Provider Primary Care Provider Unava ilable Encounter Details Date Type Department Care Team (Late st Contact Info) Description 02/05/2018 Results Only [facility] [phone] Sharmila Carter MD [address] [place] [address] Social History Tobacco Use Types Packs/Day Years Used Date Smoking Tobacco: Never Assessed Comments Unknown Sex and Gender Information Value Date Recorded Sex Assigned at Not on file Legal Sex Female 18:52 EST Gender Identity Female 03/10/2022 14:08 EDT Sexual Orientation Not on file documented as of this encounter Plan of Treatment Not on file documented as of this encounter Procedures Procedure Name Priority Date/Time Associated Diagnosis Comments PAP TEST- RESULT ONLY Routine 02/05/2018 0:00 EDT documented in this encounter Results * PAP TEST- RESULT ONLY (02/05/2018 0:00 EDT) Pathology Report: CYTOPATHOLOGY REPORT Reports generated via electronic interface contain original data; however they are lacking the format of the original report. Caution should be taken when reading/interpreti ng unformatted reports. Name: ? MINISTERIO ALARCON ? Accession #: ? [id number] ? : ? 1955 (Age: 62) ??F ?Collect Date: ? 02/05/2018 ? Location: ? [facility] ? Receive Date: ? 02/07/2018 ? Provider: SHARMILA CARTER MD Copy to: ? Final Report SPECIMEN ADEQUACY ? Satisfactory for Evaluation - assessment of transformation zone component not applicable ( e.g. atrophy, vaginal sample, hysterectomy) GENERAL CATEGORIZATION ? Negative for Intraepithelial Lesion or Malignancy ?? Other: Additional clinical information: Z01.419 Z11.51 Specimen/Source: ??Pap Test, Cervix, ThinPrep Imaging System with manual evaluation Document reviewed and electronically signed by: ? LUIS ALFREDO Zhao(ASCP) ? Report ??Date: 02/12/2018 13:46 HPV with Pap Test ? Date Ordered: ? 02/12/2018 ? Status: ?? Signed Out ?Date Complete: ? 02/14/2018 ? By: ??System Interface ? Date Reported: ? 02/14/2018 ? Interpretation RESULT: Negative for HPV. No E6 or E7 mRNA is detected from HPV types 16,18,31,33,35, 39,45,51,52,56,58, 59,66, and 68 by annealing oven operator mediated amplification. Comments Document reviewed and electronically signed by: ? System Interface ? Report date: 02/14/2018 By the signature above, the attending physician certifies that he/she has personally conducted a gross and/or microscopic examination of the described specimens and rendered or confirmed the above diagnosis. End of Report [facility] 02/05/2018 02/07/2018 us Sharmila Carter MD PATHOLOGY ORDERABLES Final Result Performing Organization Address City/State/[facility] Co de Phone Number [facility] [address] [place] [address] documented in this encounter Visit Diagnoses Not on filedocumented in this encounter Care Teams Disciplinary Hearing Officer Relationship Specialty Start Date End Date Unknown, Provider, PCP - General 08/18/10 03/09/22 documented as of this encounter
--- OUTSIDE RECORDS SUMMARY | 2024-05-08 15:12 | XMS_ITS | Encounter Summary ---
Author Organization [facility] Address [address] [place] [address] Care Team Providers Care Equipment Driver Name Role Phone Unknown, Provider Primary Care Provider Unava ilable Reason for Visit * Reason Onset Date Comments Appointment Related 02/28/2022 Encounter Details Date Type Department Care Team (Late st Contact Info) Description 02/28/2022 Telephone [facility] Breast Imaging Mammography - [facility] [address] [place] [address] Lillian Bello Appointment Related Social History Tobacco Use Types Packs/Day Years [...] on file documented as of this encounter Miscellaneous Notes * Telephone Encounter - Lillian Bello - 02/28/2022 0836 EDT Pt left message saying she'd had imaging at [facility] and had a referral in to come to [facility] for follow-up. Looking to speak with someone in the department to get some questions answered. Called pt back, but had to leave a message. documented in this encounter Plan of Treatment Not on file documented as of this encounter Visit Diagnoses Not on filedocumented in this encounter Care Teams Equipment Driver Relationship Specialty Start Date End Date Unknown, Provider, PCP - General 08/18/10 03/09/22 documented as of this encounter
--- OUTSIDE RECORDS SUMMARY | 2024-05-08 15:12 | XMS_ITS | Encounter Summary ---
Author Organization [facility] Address [address] [place] [address] Care Team Providers Care Box Press Operator Name Role Phone Unknown, Provider Primary Care Provider Unava ilable Reason for Referral * (Routine/Next Available) - Receiving Office to Obtain Authorization Specialty Diagnoses / Procedures Referred By Contac t Referred To Contact Procedures US OUTSIDE IMAGES BREAST Unknown, ProviderMD Referral ID Status Reason Start Date Expiration Date Visits Requested Visits Authorized [id number] Receiving Office to Obtain Authorization 3 1 1 Reason for Visit * (Routine/Next Available) - Receiving Office to Obtain Authorization Specialty Diagnoses / Procedures Referred By Contac t Referred To Contact Procedures US OUTSIDE IMAGES BREAST Unknown, ProviderMD Referral ID Status Reason Start Date Expiration Date Visits Requested Visits Authorized [id number] Receiving Office to Obtain Authorization 3 1 1 Encounter Details Date Type Department Care Team (Latest Contact Info) Description 02/11/2021 Hospital Encounter [facility] Secondary Reads [place] Discharge Disposition: Home or [...] Name Priority Date/Time Associated Diagnosis Comments US OUTSIDE IMAGES BREAST Routine 02/11/2021 17:35 EDT documented in this encounter Results * US OUTSIDE IMAGES BREAST (02/11/2021 17:35 EDT) Narrative 03/07/2023 17:35 EDT This is a non-reportable exam. us Provider Unknown MD TORRES OTHER IMAGING ORDERABLES Final Result documented in this encounter Visit Diagnoses Not on filedocumented in this encounter Care Teams Box Press Operator Relationship Specialty Start Date End Date Unknown, Provider, PCP - General 08/18/10 03/09/22 documented as of this encounter
--- OUTSIDE RECORDS SUMMARY | 2024-05-08 15:12 | XMS_ITS | Encounter Summary ---
Author Organization [facility] Address [address] [place] [address] Care Team Providers Care Vice Chairman Name Role Phone Unknown, Provider Primary Care Provider Unava ilable Encounter Details Date Type Department Care Team (Late st Contact Info) Description 02/05/2018 10:33 EDT - 02/05/2018 10:34 EDT Hospital Encounter [facility] - [address] [address] Sharmila Carter MD [address] [place] [address] [address] [place] [phone] Discharge Disposition: Home or Self Care Social History Tobacco Use Types Packs/Day Years Used Date Smoking Tobacco: Never Assessed Comments Unknown Sex and Gender Information Value Date Recorded Sex Assigned at Not on file Legal Sex Female 18:52 EST Gender Identity Female 03/10/2022 14:08 EDT Sexual Orientation Not on file documented as of this encounter Discharge Diagnoses Diagnosis Z01.419 Encounter for gynecological examination (general) (routine) without abnormal findings-Z01.419[ICD-10-CM] Z11.51 Encounter for screening for human papillomavirus (HPV)-Z11.51[ICD-10-CM] documented in this encounter Discharge Disposition Disposition Code Departure Means Destination Home or Self Care documented in this encounter Plan of Treatment Not on file documented as of this encounter Visit Diagnoses Not on filedocumented in this encounter Care Teams Vice Chairman Relationship Specialty Start Date End Date Unknown, Provider, PCP - General 08/18/10 03/09/22 documented as of this encounter
--- OUTSIDE RECORDS SUMMARY | 2024-05-08 15:12 | XMS_ITS | Encounter Summary ---
Author Organization [facility] Address [address] [place] [address] Care Team Providers Care Community Health Advisor Name Role Phone Unknown, Provider Primary Care Provider Unava ilable Encounter Details Date Type Department Care Team (Late st Contact Info) Description 02/23/2015 Results Only [facility] [phone] Sharmila Carter MD [address] [place] [phone] Social History Tobacco Use Types Packs/Day [...] Diagnosis Comments PAP TEST- RESULT ONLY Routine 02/23/2015 0:00 EDT documented in this encounter Results * PAP TEST- RESULT ONLY (02/23/2015 0:00 EDT) Pathology Report: CYTOPATHOLOGY REPORT Reports generated via electronic interface contain original data; however they are lacking the format of the original report. Caution should be taken when reading/interpreti ng unformatted reports. Name: ? MINISTERIO ALARCON ? Accession #: ? [id number] ? : ? 1955 (Age: 59) ??F ?Collect Date: ? 02/23/2015 ? Location: ? [facility] ? Receive Date: ? 02/25/2015 ? Provider: SHARMILA CARTER MD Copy to: ? Final Report SPECIMEN ADEQUACY ? Satisfactory for Evaluation - transformation zone component present GENERAL CATEGORIZATION ? Negative for Intraepithelial Lesion or Malignancy ?? Last Menstrual Period: 2011 Specimen/Source: ??Pap Test, Cervix/Endocervix, ThinPrep Imaging System with manual evaluation Document reviewed and electronically signed by: ? LUIS ALFREDO Zhao(ASCP) ? Report ??Date: 02/27/2015 16:50 HPV with Pap Test ? Date Ordered: ? 02/27/2015 ? Status: ?? Signed Out ?Date Complete: ? 03/03/2015 ? By: ??System Interface ? Date Reported: ? 03/03/2015 ? Interpretation RESULT: Negative for HPV. No E6 or E7 mRNA is detected from HPV types 16,18,31,33,35, 39,45,51,52,56,58, 59,66, and 68 by roof foreman mediated amplification. Comments Document reviewed and electronically signed by: ? System Interface ? Report date: 03/03/2015 By the signature above, the attending physician certifies that he/she has personally conducted a gross and/or microscopic examination of the described specimens and rendered or confirmed the above diagnosis. End of Report [facility] 02/23/2015 02/25/2015 us Sharmila Carter MD PATHOLOGY ORDERABLES Final Result [facility] [address] [place] [address] documented in this encounter Visit Diagnoses Not on filedocumented in this encounter Care Teams Community Health Advisor Relationship Specialty Start Date End Date Unknown, Provider, PCP - General 08/18/10 03/09/22 documented as of this encounter
--- OUTSIDE RECORDS SUMMARY | 2024-05-08 15:12 | XMS_ITS | Encounter Summary ---
Author Organization [facility] Address [address] [place] [address] Care Team Providers Care Hot Walker Name Role Phone Unknown, Provider MD Primary Care Provider Unava ilable Reason for Visit * (Routine/Next Available) - Receiving Office to Obtain Authorization Specialty Diagnoses / Procedures Referred By Conttricia t Referred To Contact Procedures MA BREAST OUTSIDE IMAGES Unknown, Provider, MD Referral ID Status Reason Start Date Expiration Date Visits Requested Visits Authorized [id number] Receiving Office to Obtain Authorization 02/27/2022 1 1 Encounter Details Date Type Department Care Team (Latest Contact Info) Description 01/26/2021 - 01/26/2021 23:59 EDT Hospital Encounter [facility] Secondary Reads [place] Discharge Disposition: Home [...] Comments MA OUTSIDE IMAGES BREAST OTHER Routine 01/26/2021 8:15 EDT documented in this encounter Results * MA BREAST OUTSIDE IMAGES (01/26/2021 8:15 EDT) Narrative 02/27/2022 8:16 EDT This is a non-reportable exam. us Provider Unknown MD TORRES OTHER IMAGING ORDERABLES Final Result documented in this encounter Visit Diagnoses Not on filedocumented in this encounter Care Teams Hot Walker Relationship Specialty Start Date End Date Unknown, Provider, PCP - General 08/18/10 03/09/22 documented as of this encounter
--- OUTSIDE RECORDS SUMMARY | 2024-05-08 15:12 | XMS_ITS | Encounter Summary ---
Author Organization [facility] Address [address] [place] [address] Care Team Providers Care R D Intern Name Role Phone Unknown, Provider MD Primary Care Provider Unava ilable Reason for Visit * (Routine/Next Available) - Receiving Office to Obtain Authorization Specialty Diagnoses / Procedures Referred By Contac t Referred To Contact Procedures MA BREAST OUTSIDE IMAGES Unknown, Provider, MD Referral ID Status Reason Start Date Expiration Date Visits Requested Visits Authorized [id number] Receiving Office to Obtain Authorization 02/27/2022 1 1 Encounter Details Date Type Department Care Team (Latest Contact Info) Description 02/23/2022 - 02/23/2022 23:59 EDT Hospital Encounter [facility] Secondary Reads [place] Discharge Disposition: Home or [...] Comments MA OUTSIDE IMAGES BREAST OTHER Routine 02/23/2022 8:28 EDT documented in this encounter Results * MA BREAST OUTSIDE IMAGES (02/23/2022 8:28 EDT) Narrative 02/27/2022 8:29 EDT This is a non-reportable exam. us Provider Unknown MD TORRES OTHER IMAGING ORDERABLES Final Result documented in this encounter Visit Diagnoses Not on filedocumented in this encounter Care Teams R D Intern Relationship Specialty Start Date End Date Unknown, Provider, PCP - General 08/18/10 03/09/22 documented as of this encounter
--- OUTSIDE RECORDS SUMMARY | 2024-05-08 15:12 | XMS_ITS | Encounter Summary ---
Author Organization [facility] Address [address] [place] [address] Care Team Providers Care Crisis Mental Health Therapist Name Role Phone Unknown, Provider MD Primary Care Provider Unava ilable Reason for Visit * (Routine/Next Available) - Receiving Office to Obtain Authorization Specialty Diagnoses / Procedures Referred By Conttricia t Referred To Contact Procedures MA BREAST OUTSIDE IMAGES Unknown, Provider, MD Referral ID Status Reason Start Date Expiration Date Visits Requested Visits Authorized [id number] Receiving Office to Obtain Authorization 02/27/2022 1 1 Encounter Details Date Type Department Care Team (Latest Contact Info) Description 02/11/2021 - 02/11/2021 23:59 EDT Hospital Encounter [facility] Secondary Reads [place] Discharge Disposition: Home [...] Comments MA OUTSIDE IMAGES BREAST OTHER Routine 02/11/2021 8:26 EDT documented in this encounter Results * MA BREAST OUTSIDE IMAGES (02/11/2021 8:26 EDT) Narrative 02/27/2022 8:26 EDT This is a non-reportable exam. us Provider Unknown MD TORRES OTHER IMAGING ORDERABLES Final Result documented in this encounter Visit Diagnoses Not on filedocumented in this encounter Care Teams Crisis Mental Health Therapist Relationship Specialty Start Date End Date Unknown, Provider, PCP - General 08/18/10 03/09/22 documented as of this encounter
--- OUTSIDE RECORDS SUMMARY | 2024-05-08 15:12 | XMS_ITS | Encounter Summary ---
Author Organization [facility] Address [address] [place] [address] Care Team Providers Care Scientologist Name Role Phone Unknown, Provider Primary Care Provider Unava ilable Reason for Visit * Reason Onset Date Comments Appointment Related 02/28/2022 Encounter Details Date Type Department Care Team (Late st Contact Info) Description 02/28/2022 Telephone [facility] Breast Imaging Mammography - [facility] [address] [place] [address] July Carvalho Appointment Related Social History Tobacco Use Types [...] encounter Miscellaneous Notes * Telephone Encounter - July Carvalho - 02/28/2022 1400 EDT Spoke with patient and has been scheduled for diagnostic mammogram at 9am and diagnostic ultrasoundat 10am, on 03.16.2022. Patient has been told to arrive at [facility] 15 minutes before to allow enough time to check in and change. Each appointment may take up to an hour, including imaging and getting results before leaving documented in this encounter Plan of Treatment Not on file documented as of this encounter Visit Diagnoses Not on filedocumented in this encounter Care Teams Scientologist Relationship Specialty Start Date End Date Unknown, Provider, PCP - General 08/18/10 03/09/22 documented as of this encounter
--- OUTSIDE RECORDS SUMMARY | 2024-05-08 15:12 | XMS_ITS | Encounter Summary ---
Author Organization [facility] Address [address] [place] [address] Care Team Providers Care Roving Hand Name Role Phone Unknown, Provider Primary Care Provider Unava ilable Encounter Details Date Type Department Care Team (Late st Contact Info) Description 02/23/2015 12:21 EDT - 02/23/2015 12:22 EDT Hospital Encounter [facility] - [address] [address] Sharmila Carter MD [address] [place] [address] [address] [place] [phone] Discharge Disposition: Home or Self Care Social [...] on filedocumented in this encounter Care Teams Roving Hand Relationship Specialty Start Date End Date Unknown, Provider, PCP - General 08/18/10 03/09/22 documented as of this encounter
--- OUTSIDE RECORDS SUMMARY | 2024-05-08 15:12 | XMS_ITS | Encounter Summary ---
Author Organization [facility] Address [address] [place] [address] Care Team Providers Care Heel Attacher Name Role Phone Unknown, Provider MD Primary Care Provider Unava ilable Reason for Visit * (Routine/Next Available) - Receiving Office to Obtain Authorization Specialty Diagnoses / Procedures Referred By Contac t Referred To Contact Procedures MA BREAST OUTSIDE IMAGES Unknown, Provider, MD Referral ID Status Reason Start Date Expiration Date Visits Requested Visits Authorized [id number] Receiving Office to Obtain Authorization 02/27/2022 1 1 Encounter Details Date Type Department Care Team (Latest Contact Info) Description 10/08/2021 - 10/08/2021 23:59 EDT Hospital Encounter [facility] Secondary Reads [place] Discharge Disposition: Home [...] Comments MA OUTSIDE IMAGES BREAST OTHER Routine 10/08/2021 8:27 EDT documented in this encounter Results * MA BREAST OUTSIDE IMAGES (10/08/2021 8:27 EDT) Narrative 02/27/2022 8:27 EDT This is a non-reportable exam. us Provider Unknown MD TORRES OTHER IMAGING ORDERABLES Final Result documented in this encounter Visit Diagnoses Not on filedocumented in this encounter Care Teams Heel Attacher Relationship Specialty Start Date End Date Unknown, Provider, PCP - General 08/18/10 03/09/22 documented as of this encounter
--- OUTSIDE RECORDS SUMMARY | 2024-05-08 15:12 | XMS_ITS | Encounter Summary ---
Author Organization [facility] Address [address] [place] [address] Care Team Providers Care Dialysis Clinical Manager Name Role Phone Unknown, Provider Primary Care Provider Gail Franco MD Primary Care Provider [phone] Nemesio Petersen DPM Unavailable [phone] Encounter Details Date Type Department Care Team (Late st Contact Info) Description 02/15/2021 Lab Requisition [facility] Pathology & Laboratory Medicine - [facility] [address] [place] [address] Kim Waite, DO [address] [facility] [address] [place] [phone] Encounter for screening for malignant neoplasm of cervix Social History Tobacco Use Types Packs/Day Years [...] Name Priority Date/Time Associated Diagnosis Comments PAP TEST Today 02/10/2021 15:16 EDT Encounter for screening for malignant neoplasm of cervix [ICD-10-CM] HPV DNA DETECTION WITH GENOTYPING, PCR Today 02/10/2021 15:16 EDT Encounter for screening for malignant neoplasm of cervix [ICD-10-CM] documented in this encounter Results * HUMAN PAPILLOMAVIRUS (HPV) DETECTION-HIGH RISK TYPES (02/10/2021 15:16 EDT) HPV other High Risk types, PCR Negative Negative 02/26/2021 15:26 EDT [facility] Comment:No E6 or E7 mRNA is detected from HPV types 16,18,31,33,35,39,45,51,52,56,58,59,66, and 68 by group activities aide mediated amplification. Papanicolaou smear specimen (specimen) CERVIX UTERI STRUCTURE / Unknown 02/10/2021 15:16 EDT 02/25/2021 9:40 EDT Kim Waite DO MICROBIOLOGY - G ENERAL ORDERABLES Final Result [facility] [address] [place] [id number] * PAP TEST (02/10/2021 15:16 EDT) Specimens A. Cervix and/or Endocervix , ThinPrep Imaging System with Manual Evaluation 02/26/2021 15:26 [facility] Specimen Adequacy Satisfactory for Evaluation - assessment of transformation zone component not applicable ( e.g. atrophy, vaginal sample, hysterectomy) Scant squamous epithelial component, contamination present, possibly lubricant 02/26/2021 15:26 T [facility] General Categorization Negative for intraepithelial lesion or malignancy 02/26/2021 15:26 [facility] Attestation . 02/26/2021 15:26 [facility] at 1526 Clinical History Clinical History, Signs, Symptoms, Chief Complaint, Pertaining to This Order: See below Last Menstral Period: POSTMENOPAUSAL 02/26/2021 15:26 EDT [facility] HPV The result for the Human Papillomavirus (HPV) Detection-High Risk Types is Negative. No E6 or E7 mRNA is detected from HPV types 16,18,31,33,35,39 ,45,51,52,56,58,5 9,66, and 68 by group activities aide mediated amplification.Anastasia ting was performed on specimen [id number] and was resulted on 02/26/2021 1514 EDT by DANNY, LAB INSTRUMENT RESULTS IN 02/26/2021 15:26 EDT [facility] Performing Lab [facility] 02/26/2021 15:26 EDT [facility] Scanned Images 02/26/2021 15:26 EDT [facility] Papanicolaou smear specimen (specimen) CERVIX UTERI STRUCTURE / Unknown 02/10/2021 15:16 EDT 02/16/2021 11:26 EDT Kim Waite DO PATHOLOGY ORDERA BLES Final Result [facility] [address] [place] [address] documented in this encounter Visit Diagnoses Diagnosis Encounter for screening for malignant neoplasm of cervix Screening for malignant neoplasm of the cervix documented in this encounter Care Teams Dialysis Clinical Manager Relationship Specialty Start Date End Date Unknown, Provider, PCP - General 08/18/10 03/09/22 Gail Chen MD [address] [place] [phone] PCP - General 03/10/22 Nemesio Petersen DPM [address] [place] [phone] 01/17/23 documented as of this encounter
--- OUTSIDE RECORDS SUMMARY | 2024-05-08 15:12 | XMS_ITS | Encounter Summary ---
Author Organization [facility] Address [address] [place] [address] Care Team Providers Care High School Coach Name Role Phone Unknown, Provider Primary Care Provider Unava ilable Encounter Details Date Type Department Care Team (Late st Contact Info) Description 08/17/2010 Results Only [facility] - [facility] [address] [place], [place] [phone] Phuc Bob, BINU [address] [place] [address] Social History Tobacco Use Types Packs/Day Years [...] Procedure Name Priority Date/Time Associated Diagnosis Comments CYTOPATHOLOGY Routine 08/17/2010 0:00 EDT documented in this encounter Results * CYTOPATHOLOGY (08/17/2010 0:00 EDT) Pathology Report: CYTOPATHOLOGY REPORT ? Reports generated via electronic interface contain original data; ? however they are lacking the format of the original report. ? Caution should be taken when reading/interpreti ng unformatted reports. ? Name: ? MINISTERIO ALARCON ? Accession #: ? [id number] ? : ? 1955 (Age: 55) ??F ?Collect Date: ? 08/17/2010 ? Location: ? [facility] ? Receive Date: ? 08/19/2010 ? Provider: PHUC MAGGIE PAPER MAKING MACHINE OPERATOR ? Copy to: ? Final Report ? SPECIMEN ADEQUACY ? Satisfactory for Evaluation ? - transformation zone component present ? GENERAL CATEGORIZATION ? Negative for Intraepithelial Lesion or Malignancy ? Last Menstural Period: n/a ? Specimen/Source: ??Pap Test, Cervix, ThinPrep Imaging System with manual ? evaluation ? Document reviewed and electronically signed by: ? Cecil Stumler, [place](ASCP) ? Report ??Date: 08/23/2010 12:31 ? HPV with Pap Test ? Date Ordered: ? 08/23/2010 ? Status: ?? Signed Out ?Date Complete: ? 08/25/2010 ? By: ??System Interface ? Date Reported: ? 08/25/2010 ? Interpretation ? RESULT: Negative for HPV types 16, 18, 31, 33, 35, 39, 45, 51, 52, ? 56, 58, 59, and 68. ? Comments ? Document reviewed and electronically signed by: ? System Interface ? Report date: 08/25/2010 ? By the signature above, the attending physician certifies that he/she has ? personally conducted a gross and/or microscopic examination of the described ? specimens and rendered or confirmed the above diagnosis. ? End of Report ? [facility] 08/17/2010 08/19/2010 us Phuc Bob PAPER MAKING MACHINE OPERATOR PATHOLOGY ORDERABLES Alicia l Result [facility] [address] [place] [address] documented in this encounter Visit Diagnoses Not on filedocumented in this encounter Care Teams High School Coach Relationship Specialty Start Date End Date Unknown, Provider, PCP - General 08/18/10 03/09/22 documented as of this encounter
[2024-05-08 21:37] LABS: Anion Gap 7.7 mmol/L (3-11); BUN 16 mg/dL (7-18); CO2 28.3 mmol/L (21.0-32.0); CREATININE 0.7 mg/dL (0.55-1.02); Calcium 9.4 mg/dL (8.5-10.1); Chloride 106 mmol/L (98-107); Estimated GFR 94.15 (mL/min/1.73m2); Glucose 97 mg/dL (74-106); Potassium 4.2 mmol/L (3.5-5.1); Sodium 142 mmol/L (136-145)
== END 2024-05-08 15:09 | disposition home or self-care (01) ==
LOC: NCHCN 15:08
PROVIDERS: PCP Nurse Practitioner Family; Visit Provider Family Medicine
DX: I10 Essential (primary) hypertension (principal)
CPT/HCPCS: 80048

== ENCOUNTER 2025-01-03 18:14 | Outpatient (REF) | payer MEDICARE, BC, SELFPAY ==
[2025-01-03 22:05] LABS: Anion Gap 11.7 mmol/L (3-11); BUN 16 mg/dL (7-18); CO2 25.3 mmol/L (21.0-32.0); Calcium 9.0 mg/dL (8.5-10.1); Chloride 105 mmol/L (98-107); Estimated GFR 97.71 (mL/min/1.73m2); Glucose 103 mg/dL (74-106); Potassium 4.3 mmol/L (3.5-5.1); Sodium 142 mmol/L (136-145)
== END 2025-01-03 18:15 | disposition home or self-care (01) ==
LOC: NCHCN 18:14
PROVIDERS: PCP Nurse Practitioner Family; Visit Provider Family Medicine
DX: I10 Essential (primary) hypertension (principal)
CPT/HCPCS: 80048